=== PATIENT | male | born 2000 | race Caucasian/White ===

== ENCOUNTER 2020-08-05 20:30 | Emergency (ER) | payer OTHER ==
[~2020-08-05] VITALS: Ht 180.3 cm; Wt 63.5 kg
[~2020-08-05 20:30] MED LIST: APAP/CODEI12 MG/5 ML PO; MULTIVITAMIN PO; ORAPRED15 MG/5 ML PO; ZANTAC 15MG/15 MG/M1 PO
[2020-08-05] MEDS ORDERED: IBUPROFEN 800800 M1 PO ×2 (21:11→21:30)
[2020-08-05] MEDS ORDERED: NORCO5 PO ×2 (21:11→21:30)
[2020-08-05 21:50] VITALS: BP 110/80
== END 2020-08-05 21:50 | disposition home or self-care (01) ==
LOC: M.ERS 20:30
DX: S62.397A Other fracture of fifth metacarpal bone, left hand, initial encounter for closed fracture (principal); M41.9 Scoliosis, unspecified; Z88.1 Allergy status to other antibiotic agents; W22.8XXA Striking against or struck by other objects, initial encounter; Y93.89 Activity, other specified; Y92.89 Other specified places as the place of occurrence of the external cause; Y99.8 Other external cause status